=== PATIENT | male | born 1995 | race Caucasian/White ===

== ENCOUNTER 2019-01-30 20:11 | Emergency (ER) | payer OTHER ==
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
[2019-01-30] MEDS ORDERED: HYDROCODONE/ACETAMINOPHEN 5-325 MG TABLET PO ONE (22:14)
[2019-01-30 22:50] LABS: ABSOLUTE BASOPHILS # (AUTO) 0.1 10^3/uL (0.0-0.2); ABSOLUTE EOSINOPHILS # (AUTO) 0.1 10^3/uL (0.0-0.6); ABSOLUTE LYMPHOCYTES (AUTO) 3.2 10^3/uL (0.5-4.7); ABSOLUTE MONOCYTES (AUTO) 0.8 10^3/uL (0.1-1.4); ABSOLUTE NEUT (AUTO) 7.4 10^3/uL (1.7-8.2); BASOPHILS % (AUTO) 0.5 % (0-2); EOSINOPHILS % (AUTO) 1.1 % (0-6); HEMATOCRIT 46.5 % (37.9-51.0); HEMOGLOBIN 15.9 g/dL (13.5-17.0); LYMPHOCYTES % (AUTO) 27.9 % (13-45); MEAN CORPUSCULAR HEMOGLOBIN 28.8 pg (27.0-33.4); MEAN CORPUSCULAR HGB CONC 34.3 g/dL (32.0-36.0); MEAN CORPUSCULAR VOLUME 84 fl (80-97); MONOCYTES % (AUTO) 6.8 % (3-13); PLATELET COUNT 109 10^3/uL (150-450); RED BLOOD COUNT 5.52 10^6/uL (4.35-5.55); SEGMENTED NEUTROPHILS % (AUTO) 63.7 % (42-78); TOTAL CELLS COUNTED % (AUTO) 100 %; WHITE BLOOD COUNT 11.5 10^3/uL (4.0-10.5)
[2019-01-30 23:17] LABS: ANION GAP 15 (5-19); BLOOD UREA NITROGEN 14 mg/dL (7-20); CALCIUM 10.3 mg/dL (8.4-10.2); CARBON DIOXIDE 24 mmol/L (22-30); CHLORIDE 104 mmol/L (98-107); CREATINE KINASE 140 U/L (55-170); GLUCOSE 87 mg/dL (75-110); POTASSIUM 3.8 mmol/L (3.6-5.0)
[2019-01-30 23:40] VITALS: BP 166/86
--- NOTE | 2019-01-31 09:51 | EKG REPORT ---
SEVERITY:- NORMAL ECG - SINUS RHYTHM : Confirmed by: Phoebe Chavira MD 31-Jan-2019 09:50:55
== END 2019-01-30 23:40 | disposition home or self-care (01) ==
LOC: ER 20:11
DX: T23.002A Burn of unspecified degree of left hand, unspecified site, initial encounter (principal); R03.0 Elevated blood-pressure reading, without diagnosis of hypertension; W86.8XXA Exposure to other electric current, initial encounter; F17.200 Nicotine dependence, unspecified, uncomplicated
CPT/HCPCS: 36415; 80048; 82550; 85025; 93005; 93010; 99285